=== PATIENT | female | born 2000 | race Caucasian/White ===

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

== ENCOUNTER → 2022-03-29 13:04 | Outpatient (BNVA) | payer MEDICAID, SELFPAY | PROVIDERS: Visit Provider Advanced Practice Midwife | DX: O21.9 Vomiting of pregnancy, unspecified (principal); N92.6 Irregular menstruation, unspecified; Z3A.00 Weeks of gestation of pregnancy not specified | CPT/HCPCS: 76801; 81025; 99212 ==

== ENCOUNTER 2022-03-29 14:02 | Outpatient (REF) | payer MEDICAID, SELFPAY ==
--- NOTE | ~2022-03-29 | US_ITS ---
EXAMINATION: US OBSTETRICAL ULTRASOUND CLINICAL INFORMATION: Irregular menses. COMPARISON: None. LMP: 01/18/2022. Gestational age by maternal dates is 10 weeks and 0 days. Estimated date of delivery by maternal dates is 10/25/2022. TECHNIQUE: Ultrasound of the maternal pelvis is performed using transabdominal transducer. M-mode Doppler is also performed. FINDINGS: There is a single intrauterine gestational sac with visible yolk sac, embryo/fetus, and cardiac activity. There is a 2.1 x 0.9 x 0.9 cm subchorionic hemorrhage. HR: 158 beats per minute. CRL (crown rump length): 124 cm (7 weeks and 4 days +/- 4 days). CELSO (estimated date of delivery): 11/11/2022 +/- 4 days. MATERNAL ADNEXA: The right maternal ovary is not visualized. The left maternal ovary measures 3.2 x 1.6 x 1.7 cm. The left ovary contains a 1.5 x 1.8 x 1.5 cm corpus luteum cyst. There is no significant maternal adnexal mass. No maternal pelvic ascites. US/US OB <= 14 weeks fetus IMPRESSION: 1. Single intrauterine gestation with ultrasound gestational age of 7 weeks and 4 days +/- 4 days. 2. Estimated date of delivery is 11/11/2022 +/- 4 days. 3. A small subchorionic hemorrhage is noted. 4. No maternal adnexal mass or pelvic ascites. A preliminary report was provided by the [facility] on 03/31/2022.
== END 2022-03-29 14:03 | disposition home or self-care (01) ==
LOC: HO.US 14:02
PROVIDERS: Visit Provider Advanced Practice Midwife
DX: O99.340 Other mental disorders complicating pregnancy, unspecified trimester (principal); O21.9 Vomiting of pregnancy, unspecified; F31.9 Bipolar disorder, unspecified; F98.8 Other specified behavioral and emotional disorders with onset usually occurring in childhood and adolescence
CPT/HCPCS: 76801

== ENCOUNTER → 2022-04-02 12:59 | Outpatient (BNVA) | payer MEDICAID, SELFPAY | PROVIDERS: Visit Provider Advanced Practice Midwife | DX: Z34.91 Encounter for supervision of normal pregnancy, unspecified, first trimester (principal) | CPT/HCPCS: 99212 ==

== ENCOUNTER → 2022-04-16 13:38 | Outpatient (BNVA) | payer MEDICAID, SELFPAY | PROVIDERS: Visit Provider Advanced Practice Midwife | DX: Z34.01 Encounter for supervision of normal first pregnancy, first trimester (principal); Z3A.10 10 weeks gestation of pregnancy | CPT/HCPCS: 99212 ==

== ENCOUNTER 2022-04-27 11:02 | Outpatient (REF) | payer MEDICAID, SELFPAY ==
[2022-04-27 12:51] LABS: Amphetamine Screen Urine Not Detected (Not Detect); Barbiturates, Urine Not Detected (Not Detect); Benzodiazepines Screen Urine Not Detected (Not Detect); Cannabinoid Screen Urine POSITIVE (Not Detect); Cocaine Screen Urine Not Detected (Not Detect); Fentanyl, urine Not Detected (Not Detect); Opiate Screen Urine Not Detected (Not Detect); Phencyclidine Screen Urine Not Detected (Not Detect)
[2022-04-27 13:57] LABS: Hematocrit 37.3 % (37.0-47.0); Hemoglobin 12.7 g/dl (12.0-16.0); Mean Corpuscular Hemoglobin 28.5 pg (27.0-33.0); Mean Corpuscular Volume 83.6 fL (80.0-98.0); Mean Platelet Volume 8.6 fL (9.4-12.3); Platelet Count 347 X10*3/uL (160-400); Red Blood Count 4.46 X10*6/uL (4.20-5.50); Red Cell Distribution Width 12.9 % (11.0-16.0); White Blood Count 11.2 X10*3/uL (4.8-10.8)
[2022-04-27 15:01] LABS: Glucose 1 Hour PP 50gm Dose 120 mg/dL (60-140)
[2022-04-28 04:25] LABS: Syphilis Screen Nonreactive (Nonreactive)
[2022-04-28 04:53] LABS: HIV AB/AG Nonreactive (Nonreactive); HIV Num 1 0.06 S/CO (0.00-0.99); Hepatitis B Surface Antigen Negative (Negative); ~HepC Num1 0.11 S/CO (0.00-0.79); ~Hepatitis C Antibody Nonreactive (Nonreactive)
[2022-04-28 05:59] LABS: CT PCR NOT DETECTED (Not Detect.); NG PCR NOT DETECTED (Not Detect.)
[2022-04-28 13:34] LABS: Rubella IgG Antibody 2.01 Index
[2022-05-07 13:04] LABS: CF Ethnicity NG; Cystic Fibrosis NEGATIVE (NEGATIVE)
== END 2022-04-27 11:03 | disposition home or self-care (01) ==
LOC: HO.LAB 11:02
PROVIDERS: Visit Provider Advanced Practice Midwife
DX: O26.891 Other specified pregnancy related conditions, first trimester (principal); O99.341 Other mental disorders complicating pregnancy, first trimester; N64.4 Mastodynia; R10.9 Unspecified abdominal pain; F41.9 Anxiety disorder, unspecified; F39 Unspecified mood [affective] disorder; Z3A.11 11 weeks gestation of pregnancy
CPT/HCPCS: 0353U; 80307; 81220; 82950; 85027; 86762; 86780; 86787; 86803; 86850; 86900; 87086; 87340; 87389; 99212

== ENCOUNTER 2022-04-27 12:24 | Outpatient (REF) | payer MEDICAID, SELFPAY | END 2022-04-27 12:25 | disposition home or self-care (01) | LOC: HO.LNP 12:24 | PROVIDERS: Visit Provider Advanced Practice Midwife | DX: Z13.89 Encounter for screening for other disorder (principal) ==

== ENCOUNTER → 2022-05-06 15:04 | Outpatient (BNVA) | payer MEDICAID, SELFPAY | PROVIDERS: Visit Provider Advanced Practice Midwife | DX: O26.891 Other specified pregnancy related conditions, first trimester (principal); R51.9 Headache, unspecified; Z3A.13 13 weeks gestation of pregnancy | CPT/HCPCS: 81003; 99212 ==

== ENCOUNTER → 2022-06-22 15:09 | Outpatient (BNVA) | payer MEDICAID, SELFPAY | PROVIDERS: PCP Registered Nurse; Visit Provider Advanced Practice Midwife | DX: Z34.02 Encounter for supervision of normal first pregnancy, second trimester (principal); Z3A.19 19 weeks gestation of pregnancy | CPT/HCPCS: 99212 ==

== ENCOUNTER → 2022-07-20 15:03 | Outpatient (BNVA) | payer MEDICAID, SELFPAY | PROVIDERS: PCP Registered Nurse; Visit Provider Advanced Practice Midwife | DX: Z34.02 Encounter for supervision of normal first pregnancy, second trimester (principal); Z3A.23 23 weeks gestation of pregnancy | CPT/HCPCS: 81003; 99212 ==

== ENCOUNTER 2022-09-08 14:14 | Outpatient (REF) | payer MEDICAID, SELFPAY | END 2022-09-08 14:15 | disposition home or self-care (01) | LOC: HO.MAMMO 14:14 | PROVIDERS: PCP Registered Nurse; Visit Provider Registered Nurse | DX: Z13.89 Encounter for screening for other disorder (principal) ==

== ENCOUNTER 2022-09-09 10:18 | Outpatient (REF) | payer MEDICAID, SELFPAY ==
[2022-09-09 14:10] LABS: Amphetamine Screen Urine Not Detected (Not Detect); Barbiturates, Urine Not Detected (Not Detect); Benzodiazepines Screen Urine Not Detected (Not Detect); Cannabinoid Screen Urine POSITIVE (Not Detect); Cocaine Screen Urine Not Detected (Not Detect); Fentanyl, urine Not Detected (Not Detect); Opiate Screen Urine Not Detected (Not Detect); Phencyclidine Screen Urine Not Detected (Not Detect)
[2022-09-10 03:34] LABS: Syphilis Screen Nonreactive (Nonreactive)
== END 2022-09-09 10:19 | disposition home or self-care (01) ==
LOC: HO.LAB 10:18
PROVIDERS: Advanced Practice Midwife; PCP Registered Nurse; Visit Provider Advanced Practice Midwife
DX: O26.893 Other specified pregnancy related conditions, third trimester (principal); F43.21 Adjustment disorder with depressed mood; F98.8 Other specified behavioral and emotional disorders with onset usually occurring in childhood and adolescence; Z20.2 Contact with and (suspected) exposure to infections with a predominantly sexual mode of transmission; Z3A.31 31 weeks gestation of pregnancy
CPT/HCPCS: 80307; 86780; 99212

== ENCOUNTER 2022-10-01 11:29 | Outpatient (AMB) | payer MEDICAID, SELFPAY ==
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
[2022-10-01 11:38] VITALS: BP 108/68; BMI 32.4
== END 2022-10-01 12:16 | disposition home or self-care (01) ==
LOC: HO.HWS 11:29
PROVIDERS: PCP Registered Nurse; Visit Provider Advanced Practice Midwife
DX: Z34.90 Encounter for supervision of normal pregnancy, unspecified, unspecified trimester (principal)
CPT/HCPCS: 25942

== ENCOUNTER → 2022-10-01 11:29 | Outpatient (BNVA) | payer MEDICAID, SELFPAY | PROVIDERS: PCP Registered Nurse; Visit Provider Advanced Practice Midwife | DX: O44.40 Low lying placenta NOS or without hemorrhage, unspecified trimester (principal); O9A.413 Sexual abuse complicating pregnancy, third trimester; O99.323 Drug use complicating pregnancy, third trimester; F12.20 Cannabis dependence, uncomplicated; O99.343 Other mental disorders complicating pregnancy, third trimester; F31.9 Bipolar disorder, unspecified; Z3A.34 34 weeks gestation of pregnancy; Z83.3 Family history of diabetes mellitus; Z63.79 Other stressful life events affecting family and household | CPT/HCPCS: 99212 ==

== ENCOUNTER 2022-10-18 13:24 | Outpatient (REF) | payer MEDICAID, SELFPAY ==
[2022-10-19 05:43] LABS: CT PCR NOT DETECTED (Not Detect.); NG PCR NOT DETECTED (Not Detect.)
[2022-10-19 12:06] LABS: BV Int Neg Control Negative (Negative); BV Int Pos Control Positive (Positive)
[2022-10-20 15:16] LABS: Allergic to Penicillin? No
== END 2022-10-18 13:25 | disposition home or self-care (01) ==
LOC: HO.LNP 13:24
PROVIDERS: PCP Registered Nurse; Visit Provider Advanced Practice Midwife
DX: O44.40 Low lying placenta NOS or without hemorrhage, unspecified trimester (principal); Z3A.36 36 weeks gestation of pregnancy
CPT/HCPCS: 0353U; 81003; 87150; 87480; 87510; 87660; 99212

== ENCOUNTER 2022-10-18 13:24 | Outpatient (AMB) | payer MEDICAID, SELFPAY ==
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
[2022-10-18 13:31] VITALS: BP 120/56; BMI 32.8
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
== END 2022-10-18 14:37 | disposition home or self-care (01) ==
LOC: HO.HWS 13:24
PROVIDERS: PCP Registered Nurse; Visit Provider Advanced Practice Midwife
DX: O44.40 Low lying placenta NOS or without hemorrhage, unspecified trimester (principal); Z20.2 Contact with and (suspected) exposure to infections with a predominantly sexual mode of transmission; F98.8 Other specified behavioral and emotional disorders with onset usually occurring in childhood and adolescence; Z13.9 Encounter for screening, unspecified
CPT/HCPCS: 25942

== ENCOUNTER 2022-10-18 14:39 | Outpatient (REF) | payer MEDICAID, SELFPAY ==
[2022-10-18 16:37] LABS: Hematocrit 41.2 % (37.0-47.0); Hemoglobin 13.7 g/dl (12.0-16.0); Mean Corpuscular HGB Conc 33.3 g/dl (31.0-35.0); Mean Corpuscular Hemoglobin 28.6 pg (27.0-33.0); Mean Platelet Volume 8.7 fL (9.4-12.3); Platelet Count 335 X10*3/uL (160-400); Red Blood Count 4.79 X10*6/uL (4.20-5.50); Red Cell Distribution Width 13.1 % (11.0-16.0); White Blood Count 10.7 X10*3/uL (4.8-10.8)
[2022-10-18 17:03] LABS: Glucose 1 Hour PP 50gm Dose 102 mg/dL (60-140)
[2022-10-19 04:47] LABS: HBsAGNum1 0.35 S/CO (0.00-0.99); HIV AB/AG Nonreactive (Nonreactive); HIV Num 1 0.06 S/CO (0.00-0.99); Hepatitis B Surface Antigen Negative (Negative); ~Hepatitis C Antibody Nonreactive (Nonreactive)
[2022-10-20 03:57] LABS: Syphilis Screen Nonreactive (Nonreactive)
== END 2022-10-18 14:40 | disposition home or self-care (01) ==
LOC: HO.LAB 14:39
PROVIDERS: PCP Registered Nurse; Visit Provider Advanced Practice Midwife
DX: Z34.93 Encounter for supervision of normal pregnancy, unspecified, third trimester (principal); Z20.2 Contact with and (suspected) exposure to infections with a predominantly sexual mode of transmission
CPT/HCPCS: 82950; 85027; 86780; 86803; 87340; 87389

== ENCOUNTER 2022-10-29 15:20 | Outpatient (AMB) | payer MEDICAID, SELFPAY ==
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
[2022-10-29 15:24] VITALS: BP 112/66; BMI 34.0
== END 2022-10-29 15:51 | disposition home or self-care (01) ==
LOC: HO.HWS 15:20
PROVIDERS: PCP Registered Nurse; Visit Provider Advanced Practice Midwife
DX: Z34.93 Encounter for supervision of normal pregnancy, unspecified, third trimester (principal)
CPT/HCPCS: 25942; 59426

== ENCOUNTER → 2022-10-29 15:20 | Outpatient (BNVA) | payer MEDICAID, SELFPAY | PROVIDERS: PCP Registered Nurse; Visit Provider Advanced Practice Midwife | DX: O44.43 Low lying placenta NOS or without hemorrhage, third trimester (principal); O99.343 Other mental disorders complicating pregnancy, third trimester; F98.8 Other specified behavioral and emotional disorders with onset usually occurring in childhood and adolescence; F39 Unspecified mood [affective] disorder; R45.4 Irritability and anger; O9A.413 Sexual abuse complicating pregnancy, third trimester; O99.323 Drug use complicating pregnancy, third trimester; F12.90 Cannabis use, unspecified, uncomplicated; Z71.51 Drug abuse counseling and surveillance of drug abuser; Z3A.38 38 weeks gestation of pregnancy; Z83.3 Family history of diabetes mellitus | CPT/HCPCS: 99212 ==

== ENCOUNTER 2024-08-13 12:31 | Outpatient (REF) | payer MEDICAID, SELFPAY ==
[2024-08-13 13:02] LABS: MANUAL DIFF FLAG NO
[2024-08-13 13:20] LABS: Basophils Percent Auto 0.3 % (0-2); Eosinophils Absolute Auto 0.1 X10*3/uL (0.0-0.4); Eosinophils Percent Auto 0.8 % (0-4); Hematocrit 37.8 % (37.0-47.0); Hemoglobin 12.5 g/dl (12.0-16.0); Imm Gran Abs Auto 0.04 X10*3/uL (0.00-0.03); Imm Gran Pct Auto 0.4 % (0.0-0.4); Lymphocytes Absolute Auto 2.8 X10*3/uL (1.2-4.9); Lymphocytes Percent Auto 30.3 % (20-40); Mean Corpuscular HGB Conc 33.1 g/dl (31.0-35.0); Mean Corpuscular Hemoglobin 28.2 pg (27.0-33.0); Mean Corpuscular Volume 85.1 fL (80.0-98.0); Mean Platelet Volume 8.4 fL (9.4-12.3); Monocytes Absolute Auto 0.5 X10*3/uL (0.1-1.2); Monocytes Percent Auto 5.2 % (2-11); Neutrophils Absolute Auto 5.7 x10*3/uL (2.0-8.3); Platelet Count 382 X10*3/uL (160-400); Red Blood Count 4.44 X10*6/uL (4.20-5.50); Red Cell Distribution Width 13.3 % (11.0-16.0); White Blood Count 9.1 X10*3/uL (4.8-10.8)
--- OUTSIDE RECORDS SUMMARY | 2024-08-13 13:30 | XMS_ITS | Encounter Summary ---
Author Organization [employer] Address [address] [place] [address] Care Team Providers Care Development Technician Name Role Phone Mary Jane Cornejo DIEGO Primary Care Provider [phone] Andres Sdidiqi Primary Care Provider Unavail Willa Gonzalez MD Primary Care Provider [phone] Gely Leon CNP Primary Care Provider [phone] Encounter Details Date Type Department Care Team (Late st Contact Info) Description 03/10/2022 Orders Only [facility] [address] [place] [address] Lyric Grant MD [address], [place] [id number] Elevated serum hCG (Primary Dx) Social History Tobacco Use Types Packs/Day Years Used Date Smoking Tobacco: Former Cigarettes Smokeless Tobacco: Never Alcohol Use Standard Drinks/Week Comments Never 0 (1 standard drink = 0.6 oz pur e alcohol) Comments Yes Sex and Gender Information Value Date Recorded Sex Assigned at Female 01/11/2022 10:17 AM EDT Legal Sex Female 10:17 AM EDT Gender Identity Female 01/11/2022 10:17 AM EDT Sexual Orientation Straight 01/11/2022 10 :17 AM EDT COVID-19 Exposure Response Date Recorded In the last 10 days, have yo u been in contact with someone who was confirmed or suspected to have Coronavirus/COVID-19? No / Unsure 03/10/2022 2:40 PM EST documented as of this encounter Functional Status * Over the past 2 weeks, how often have you been bothered by any of the following problems? Question Answer Date of Assessment Author Christina interest or pleasure in doing things Several days 03/10/2022 3:05 PM Andres Manzano AG COTTON OPENER Feeling down, depressed, or hopeless Several days 03/10/2022 3:05 PM Andres Manzano AG COTTON OPENER Patient Health Questionnaire-2 Score 2 03/10/2022 3:05 PM Andres Manzano AGNP * If you checked off any problems on this questionnaire so far, Question Answer Date of Assessment Author How difficult have these problems made it for you to do your work, take care of things at home, or get along with other people? Not difficult at all 03/10/2022 3:05 PM Andres Manzano A GNP documented as of this encounter Plan of Treatment Upcoming Encounters Date Type Department Care Team (Late st Contact Info) Description 08/22/2024 9:30 AM EDT Procedure Visit [facility] [address] [place] [address] Gely Leon, GISELLA [address] [place] [address] 08/28/2024 1:00 PM EDT Office Visit [facility] [address] [place] [address] Shoshana Galo, OD [address] [place] [address] Scheduled Orders Name Type Priority Associated Diagnoses Orde r Schedule Chlamydia/Gonorrh ea, Urine ([facility]) Point of Care Testing Routine Elevated serum hCG Ordered: 03/10/2022 documented as of this encounter Visit Diagnoses Diagnosis Elevated serum hCG- Primary documented in this encounter Care Teams Development Technician Relationship Specialty Start Date End Date Mary Jane Cornejo FNP [address] [place] [id number] PCP - General Family Medicine 11/04/21 03/18/22 Andres Siddiqi AGNP [address] [place] [id number] PCP - General Family Medicine 03/19/22 11/09/22 Willa Martinez MD [address] [place] [address] PCP - General Family Medicine 11/10/22 08/12/24 Gely Leon CNP [address] [place] [address] PCP - General Family Medicine 08/13/24 documented as of this encounter
[2024-08-13 13:42] LABS: Anion Gap 10 (12-20); Blood Urea Nitrogen 10 mg/dL (9-16); Calcium 8.9 mg/dL (8.4-10.2); Carbon Dioxide 26 mmol/L (22-29); Chloride 108 mmol/L (96-108); Estimated Glomerular Filt Rate > 60; Glucose Random 81 mg/dL (60-115); Potassium 4.2 mmol/L (3.3-5.1); Sodium 140 mmol/L (135-145)
[2024-08-13 14:38] LABS: Free T4 (Free Thyroxine) 0.92 ng/dL (0.71-1.85)
[2024-08-13 15:11] LABS: CT PCR DETECTED (Not Detect.); NG PCR NOT DETECTED (Not Detect.)
[2024-08-14 17:34] LABS: Trichomonas vaginalis RNA NOT DETECTED (NOT DETECTED)
== END 2024-08-13 12:32 | disposition home or self-care (01) ==
LOC: HO.HHCL 12:31
PROVIDERS: Visit Provider Nurse Practitioner
DX: Z00.00 Encounter for general adult medical examination without abnormal findings (principal); R53.83 Other fatigue; Z11.3 Encounter for screening for infections with a predominantly sexual mode of transmission; Z86.39 Personal history of other endocrine, nutritional and metabolic disease
CPT/HCPCS: 36415; 80048; 84439; 84443; 85025; 87491; 87591; 87661

== ENCOUNTER 2024-08-14 13:02 | Outpatient (REF) | payer MEDICAID, SELFPAY ==
--- OUTSIDE RECORDS SUMMARY | 2024-08-14 14:29 | XMS_ITS | Encounter Summary ---
Author Organization [employer] Address [address] [facility] 7t [place] [address] Care Team Providers Care Home School Liaison Officer Name Role Phone Mary Jane Cornejo DIEGO Primary Care Provider [phone] Andres Siddiqi Primary Care Provider Unavail Willa Gonzalez MD Primary Care Provider [phone] Gely Leon CNP Primary Care Provider [phone] Encounter Details Date Type Department Care Team (Late st Contact Info) Description 03/10/2022 Orders Only [facility] MEDICINE [address] [place] [address] Lyric Grant MD [address] [place], [place] [phone] Elevated serum hCG (Primary Dx) Social History [...] days 03/10/2022 3:05 PM Andres Manzano AG LAMINATION OPERATOR Feeling down, depressed, or hopeless Several days 03/10/2022 3:05 PM Andres Manzano AG LAMINATION OPERATOR Patient Health Questionnaire-2 Score 2 03/10/2022 3:05 [...] Description 08/22/2024 9:30 AM EDT Procedure Visit [facility] MEDICINE [address] [place] [address] Gely Leon, GISELLA [address] [place] [address] 08/28/2024 1:00 PM EDT Office Visit [facility] OPTOMETRY [address] [place] [address] Shoshana Galo, OD [address] [place] [address] Scheduled Orders Name Type Priority Associated Diagnoses Orde r Schedule Chlamydia/Gonorrh ea, Urine ([facility]) Point of Care Testing Routine Elevated serum hCG Ordered: 03/10/2022 documented as of this encounter Visit Diagnoses Diagnosis Elevated serum hCG- Primary documented in this encounter Care Teams Home School Liaison Officer Relationship Specialty Start Date End Date Mary Jane Cornejo FNP [address] [place] [address] PCP - General Family Medicine 11/04/21 03/18/22 Andres Siddiqi AGNP [address] [place] [address] PCP - General Family Medicine 03/19/22 11/09/22 Willa Martinez MD [address] [place] [address] PCP - General Family Medicine 11/10/22 08/12/24 Gely Leon CNP [address] [place] [address] PCP - General Family Medicine 08/13/24 documented as of this encounter
[2024-08-14 17:27] LABS: Cholesterol 126 mg/dL (<200); HDL Cholesterol 40 mg/dL (>40); LDL Cholesterol Calculated 68 mg/dL (<100); Triglycerides 94 mg/dL (<150)
[2024-08-15 04:03] LABS: Triiodothyronine T3 Total 90 ng/dL (76-181)
== END 2024-08-14 13:03 | disposition home or self-care (01) ==
LOC: HO.HHCL 13:02
PROVIDERS: Student in an Organized Health Care Education/Training Program
DX: R53.83 Other fatigue (principal); R79.89 Other specified abnormal findings of blood chemistry
CPT/HCPCS: 36415; 80061; 84480

== ENCOUNTER 2024-08-16 14:49 | Outpatient (REF) | payer MEDICAID, SELFPAY ==
[2024-08-16 16:57] LABS: HCG Quantitative < 2 mIU/mL
--- OUTSIDE RECORDS SUMMARY | 2024-08-16 17:29 | XMS_ITS | Encounter Summary ---
Author Organization [employer] Address [address] [facility] 7t [place] [address] Care Team Providers Care Lieutenant Fire Fighter Name Role Phone Mary Jane Cornejo DIEGO Primary Care Provider [phone] Andres Siddiqi Primary Care Provider Unavail Willa Gonzalez MD Primary Care Provider [phone] Gely Leon CNP Primary Care Provider [phone] Encounter Details Date Type Department Care Team (Late st Contact Info) Description 03/10/2022 Orders Only [facility] MEDICINE [address] [place] [address] Lyric Grant MD [address] [place], [place] [phone] Elevated serum hCG (Primary Dx) Social History [...] days 03/10/2022 3:05 PM Andres Manzano AG AIRCRAFT STRESS ANALYST Feeling down, depressed, or hopeless Several days 03/10/2022 3:05 PM Andres Manzano AG AIRCRAFT STRESS ANALYST Patient Health Questionnaire-2 Score 2 03/10/2022 3:05 [...] Description 08/22/2024 9:30 AM EDT Procedure Visit [facility] MEDICINE [address] [place] [address] Gely Leon, GISELLA [address] [place] [address] 08/28/2024 1:00 PM EDT Office Visit [facility] OPTOMETRY [address] [place] [address] Shoshana Galo, OD [address] [place] [address] Scheduled Orders Name Type Priority Associated Diagnoses Orde r Schedule Chlamydia/Gonorrh ea, Urine ([facility]) Point of Care Testing Routine Elevated serum hCG Ordered: 03/10/2022 documented as of this encounter Visit Diagnoses Diagnosis Elevated serum hCG- Primary documented in this encounter Care Teams Lieutenant Fire Fighter Relationship Specialty Start Date End Date Mary Jane Cornejo FNP [address] [place] [address] PCP - General Family Medicine 11/04/21 03/18/22 Andres Siddiqi AGNP [address] [place] [address] PCP - General Family Medicine 03/19/22 11/09/22 Willa Martinez MD [address] [place] [address] PCP - General Family Medicine 11/10/22 08/12/24 Gely Leon CNP [address] [place] [address] PCP - General Family Medicine 08/13/24 documented as of this encounter
== END 2024-08-16 14:50 | disposition home or self-care (01) ==
LOC: HO.HHCL 14:49
DX: Z32.00 Encounter for pregnancy test, result unknown (principal)
CPT/HCPCS: 36415; 84702

== ENCOUNTER 2024-08-22 11:18 | Outpatient (REF) | payer MEDICAID, SELFPAY ==
--- OUTSIDE RECORDS SUMMARY | 2024-08-23 13:18 | XMS_ITS | Clinical Summary ---
Author Organization [facility] it Address [address] [place] [address] Care Team Providers Care Urgent Care Physician Assistant Name Role Phone Unavailable Primary Care Provider Unavailabl e Social History Tobacco Use Types Packs/Day Years Used Date Smoking Tobacco: Never Assessed Comments Unknown Sex and Gender Information Value Date Recorded Sex Assigned at Not on file Legal Sex Female 9:05 AM EST Gender Identity Not on file Sexual Orientation Not on file Plan of Treatment Health Maintenance Due Date Last Done Comments Gonorrhea/Chlamydia Screening 2002 HPV Vaccines (1 - 3-dose series) 2017 Meningococcal B Vaccine (1 o f 2 - Standard) 2018 DTaP,Tdap,and Td Vaccines (1 - Tdap) 2021 Hepatitis B Vaccines (1 of 3 - 19+ 3-dose series) 2021 Annual Well Child Visit (3-2 1 years old) 04/12/2023 Depression Screening 04/12/2023 HIV Screening 04/12/2023 Hepatitis C Screening 04/12/2023 Social Influencers of Health Screening 04/12/2023 Cervical Cancer Screening: P ap Smear 10/07/2023 COVID-19 Vaccine (1 - 2023-2 5 season) 2023 Influenza Vaccine (Season Ended) 2024 HIB Vaccines Aged Out No longer eligi ble based on patient's age to complete this topic Hepatitis A Vaccines Aged Out No long er eligible based on patient's age to complete this topic IPV Vaccines Aged Out No longer eligi ble based on patient's age to complete this topic MMR Vaccines Aged Out No longer eligi ble based on patient's age to complete this topic Meningococcal ACWY Vaccine Aged Out N o longer eligible based on patient's age to complete this topic Pneumococcal Vaccine: Pediat rics (0 to 5 Years) and At-Risk Patients (6 to 64 Years) Aged Out No longer eligible b ased on patient's age to complete this topic RSV Immunization Patients Un kings 20 months Aged Out No longer eligible b ased on patient's age to complete this topic Varicella Vaccines Aged Out No longer eligible based on patient's age to complete this topic
[2024-08-23 13:45] LABS: Bacterial Vaginosis PCR POSITIVE (Negative); Candida Group PCR NOT DETECTED (Not Detect); Candida glab krusei PCR NOT DETECTED (Not Detect); Trichomonas vaginalis PCR NOT DETECTED (Not Detect)
== END 2024-08-22 11:19 | disposition home or self-care (01) ==
LOC: HO.HHCLNP 11:18
DX: Z12.4 Encounter for screening for malignant neoplasm of cervix (principal)
CPT/HCPCS: 81515; 88175

== ENCOUNTER 2024-08-23 15:32 | Outpatient (REF) | payer MEDICAID, SELFPAY ==
[2024-08-24 08:05] LABS: HBS Num1 0.87 mIU/mL (0-7.99); HBc Num1 0.13 S/CO (0.00-0.79); HBsAGNum1 0.43 S/CO (0.00-0.99); HIV AB/AG Nonreactive (Nonreactive); HIV Num 1 0.06 S/CO (0.00-0.99); Hepatitis B Core Antibody Nonreactive (Nonreactive); Hepatitis B Surface Antigen Negative (Negative); ~HepC Num1 0.21 S/CO (0.00-0.79); ~Hepatitis B Surface Antibody NONREACTIVE (Nonreactive); ~Hepatitis C Antibody Nonreactive (Nonreactive)
[2024-08-27 15:04] LABS: RPR Rapid Plasma Reagin NON-REACTIVE (NON-REACTIVE)
== END 2024-08-23 15:33 | disposition home or self-care (01) ==
LOC: HO.HHCL 15:32
DX: Z70.8 Other sex counseling (principal)
CPT/HCPCS: 36415; 86592; 86704; 86706; 86803; 87340; 87389

== ENCOUNTER 2024-09-07 13:36 | Outpatient (REF) | payer MEDICAID, SELFPAY ==
--- OUTSIDE RECORDS SUMMARY | 2024-09-07 14:05 | XMS_ITS | Encounter Summary ---
Author Organization [employer] Address [address] [facility] 7[address] [place] [address] Care Team Providers Care Capability Lead Name Role Phone Mary Jane Cornejo DIEGO Primary Care Provider [phone] Andres Siddiqi Primary Care Provider Unavail Willa Gonzalez MD Primary Care Provider [phone] Gely Leon CNP Primary Care Provider [phone] Encounter Details Date Type Department Care Team (Late st Contact Info) Description 03/10/2022 Orders Only [facility] MEDICINE [address] [place] [address] Lyric Grant MD [address] [place], [place] [phone] Elevated serum hCG (Primary Dx) Social History [...] days 03/10/2022 3:05 PM Andres Manzano AG CASKET INSPECTOR Feeling down, depressed, or hopeless Several days 03/10/2022 3:05 PM Andres Manzano AG CASKET INSPECTOR Patient Health Questionnaire-2 Score 2 03/10/2022 3:05 [...] all 03/10/2022 3:05 PM Andres Manzano A GN[place] documented as of this encounter Plan of Treatment Upcoming Encounters Date Type Department Care Team (Late st Contact Info) Description 09/07/2024 2:45 PM EDT Office Visit [facility] MEDICINE [address] [place] [address] Gely Leon CNP [address] [place] [address] Scheduled Orders Name Type Priority Associated Diagnoses Orde r Schedule Chlamydia/Gonorrh ea, Urine ([facility]) Point of Care Testing Routine Elevated serum hCG Ordered: 03/10/2022 documented as of this encounter Visit Diagnoses Diagnosis Elevated serum hCG- Primary documented in this encounter Care Teams Capability Lead Relationship Specialty Start Date End Date ChantalMary Jane FNP [address] [place] [address] PCP - General Family Medicine 11/04/21 03/18/22 Andres Siddiqi AGNP [address] [place] [address] PCP - General Family Medicine 03/19/22 11/09/22 Willa Martinez MD [address] [place] [address] PCP - General Family Medicine 11/10/22 08/12/24 Gely Leon CNP [address] [place] [address] PCP - General Family Medicine 08/13/24 documented as of this encounter
[2024-09-07 17:05] LABS: TSH reflex Free T4 0.48 uIU/mL (0.32-4.0)
[2024-09-08 07:04] LABS: Triiodothyronine T3 Total 96 ng/dL (76-181)
== END 2024-09-07 13:37 | disposition home or self-care (01) ==
LOC: HO.HHCL 13:36
DX: R79.89 Other specified abnormal findings of blood chemistry (principal)
CPT/HCPCS: 36415; 84443; 84480

== ENCOUNTER 2024-10-19 13:28 | Outpatient (REF) | payer MEDICAID, SELFPAY ==
--- OUTSIDE RECORDS SUMMARY | 2024-10-19 13:31 | XMS_ITS ---
Author Name [facility] Organization Unknown Allergies Allergen Reaction Severity Comment Documented Date Source Statu s SHRIMP UNKNOWN/PATIENT AND FAMILY UNABLE TO DEFINE [facility] active Problems Problem Status Onset Date Problem Type Date of Resoluti on Source of unknown anatomic location active 2023-02-26 ProblemAct HHT test positive active EncounterDiagnosisAct [facility] Encounters Encounter Type Encounter Reason Primary Diagnosis Location Date Ambulatory with inconclusive viability, not applicable or unspecified with inconclusive viability, not applicable or unspecified [facility] 03/23/2023 Emergency Influenza due to other identified influenza virus with other respiratory manifestations Influenza due to other identified influenza virus with other respiratory manifestations [facility] 02/26/2023 Emergency Encounter for test, result positive Encounter for test, result positive [facility] ([facility] 02/23/2023 Care Team Organization Name Specialty Phone Email Start Date End Da gabe [facility] 03/23/2023 05/30/2024 [facility] 02/26/2023 02/26/2023 [facility] ([facility]) 02/23/2023 02/23/2023
--- OUTSIDE RECORDS SUMMARY | 2024-10-19 13:31 | XMS_ITS | Clinical Summary ---
Author Organization [facility] Address [address] [place] [address] Care Team Providers Care Airport Ramp Attendant Name Role Phone Unknown Primary Care Provider [phone] Allergies Active Allergy Reactions Criticality Noted Date Comments Shrimp Unknown/Patient and Family Unable to Define Medium 02/26/2023 Active Problems Problem Noted Date Diagnosed Date of unknown anatomic location 3 Overview (03/24/2023): 22 y.o. presented to the ED at 5w1d by LMP, presented with vaginal spotting, no abdominal cramping, with respiratory sx (Flu+) LMP: 01/21/23 b-hC (02/26/23) Blood type: O POSITIVE TVUS: no IUP, no concern for ectopic (02/26) Plan: - Sent message to [facility] for repeat quant on Wednesday 02/28 > rescheduled as patient is Flu+, new appt on 03/08/2023 - missed appt 03/08- need to call -03/09: reached pt, agrees to repeat hcg 03/15. Feeling ok and not willing to come until then -scheduled for repeat bhcg 03/23 03/23 beta hcg <5>removed from quant list Social History Tobacco Use Types Packs/Day Years Used Date Smoking Tobacco: Never Smokeless Tobacco: Never Tobacco Cessation:Counseling Given: Not Answered Alcohol Use Standard Drinks/Week Comments Never 0 (1 standard drink = 0.6 oz pur e alcohol) Comments Unknown Sex and Gender Information Value Date Recorded Sex Assigned at Female 02/26/2023 1:03 PM EST Legal Sex Female 12:47 PM EST Gender Identity Female 02/26/2023 1:03 PM EST Sexual Orientation Heterosexual (straight) 02/26 1:03 PM EST Last Filed Vital Signs Vital Sign Reading Time Taken Comments Blood Pressure 123/71 02/26/2023 12:56 PM EST Pulse 99 02/26/2023 12:56 PM EST Temperature 38.9 C (102.1 F) 02/26/2023 12:56 PM EST Respiratory Rate 18 02/26/2023 12:56 PM EST Oxygen Saturation 96% 02/26/2023 1:24 PM EST Inhaled Oxygen Concentration - - Weight - - Height - - Body Mass Index - - Plan of Treatment Health Maintenance Due Date Last Done Comments Hepatitis C Virus Screening 2002 HIV Screening 10/07/2015 HPV Vaccines (1 - 3-dose series) 2017 DTaP/Tdap/Td Vaccines (1 - Tdap) 2021 Hepatitis B Vaccines (1 of 3 - 19+ 3-dose series) 2021 Pap Smear (Ages 21-65) 10/07/2023 COVID-19 Vaccine (1 - 2023-2 5 season) 2023 Influenza Vaccine 10/12/2024 Pneumococcal Vaccine: Pediat lulu (0-5 Years) and At-Risk Patients (6 to 49 Years) Aged Out No longer eligible b ased on patient's age to complete this topic Insurance [facility] Care Teams Airport Ramp Attendant Relationship Specialty Start Date End Date Unknown Unknow Provider Address PCP - General 02/28/23
--- OUTSIDE RECORDS SUMMARY | 2024-10-19 13:31 | XMS_ITS | Clinical Summary ---
Author Organization [facility] Address [address] [place] [address] Care Team Providers Care Second Class Welder Name Role Phone Unavailable Primary Care Provider [...] of 3 - 19+ 3-dose series) 2021 HIV Screening 04/12/2023 Hepatitis C Screening 04/12/2023 Social Influencers of Health Screening 04/12/2023 Cervical Cancer Screening: P ap Smear 10/07/2023 COVID-19 Vaccine (1 - 2023-2 5 season) 2023 Depression Screening 03/14/2024 Influenza Vaccine (#1) 2024 HIB Vaccines Aged Out No longer [...] 5 Years) and At-Risk Patients (6 to 49 [...]
[2024-10-19 16:32] LABS: Hemoglobin A1C 117.5342 umol/L; Total Hemoglobin (HGBA1C) 3394.4242 umol/L
== END 2024-10-19 13:29 | disposition home or self-care (01) ==
LOC: HO.HHCL 13:28
DX: Z83.3 Family history of diabetes mellitus (principal)
CPT/HCPCS: 36415; 83036